=== PATIENT | male | born 1985 | race Caucasian/White ===

== ENCOUNTER → 2016-09-25 | Outpatient (CLI) | payer OTHER ==
[2016-09-25 15:25] LABS: BLOOD UREA NITROGEN 15 mg/dl (7-18); BUN/CREATININE RATIO 14.8 (10-20); CALCIUM 9.6 mg/dl (8.5-10.1); CARBON DIOXIDE 28 mmol/L (21-32); CHLORIDE 103 mmol/L (98-107); GLUCOSE 83 mg/dl (70-99); SODIUM 138 mmol/L (136-145)
[2016-09-25 16:02] LABS: LYME DISEASE AB IGG NEG (NEG); LYME DISEASE AB IGM NEG (NEG)
[2016-09-26 01:20] LABS: RAPID PLASMA REAGIN NONREACTIVE (NONREACT)
== END | disposition home or self-care (01) ==
LOC: C.LABBC 11:06
PROVIDERS: ATTEND Physician Assistant Medical
DX: R51 Headache (principal)

== ENCOUNTER → 2016-10-03 | Outpatient (CLI) | payer OTHER ==
[~2016-10-03] MED LIST: GADAVIST IV PRN
--- NOTE | 2016-10-03 12:37 | DIAGNOSTIC IMAGING REPORT ---
BRAIN COMBO CLINICAL HISTORY: R53.83 [id number] Lightheadednessapproved for [facility] mental status change COMPARISON STUDY: No previous studies for comparison. TECHNIQUE: Utilizing a 1.5 [employer] magnet and dedicated coil, multiplanar, multiecho imaging of the brain was performed pre and postcontrast administration. IV administration of 7.5 mL of Gadavist contrast was uneventful. FINDINGS: Diffusion images are negative for an acute ischemic insult. Signal characteristics of the cerebellar as well as cerebral hemispheres are unremarkable. There is no significant postcontrast enhancement. Sella and sella/parasellar regions are unremarkable. No abnormal postcontrast enhancement. IMPRESSION: Normal study. Moderate mucosal thickening of the maxillary sinuses The above report was generated using voice recognition software. It may contain grammatical, syntax or spelling errors. Electronically signed by: Fady Butcher M.D. 10/03/2016 12:36 PM Dictated Date/Time: 10/03/2016 12:32 PM
== END | disposition home or self-care (01) ==
LOC: C.MRIBC 11:45
PROVIDERS: ATTEND Physician Assistant Medical
DX: R42 Dizziness and giddiness (principal); R53.83 Other fatigue; R51 Headache